=== PATIENT | female | born 1995 | race Caucasian/White ===

== ENCOUNTER 2017-09-11 12:42 | Emergency (ER) | payer MEDICAID ==
[2017-09-11 12:49] VITALS: BP 122/83; PULSE 72; RESP 18; TEMP 97.5; O2SAT 95
--- NOTE | 2017-09-11 13:38 | EDPHY ---
H & P Smoking Status: Former smoker Time Seen by Provider: 09/11/17 13:33 HPI/ROS: CHIEF COMPLAINT: Left thumb pain HISTORY OF PRESENT ILLNESS: 22-year-old [id number] female arrives via private vehicle complaining of acute left thumb pain after she was skiing and fell onto this area. Occurred shortly prior to arrival. No paresthesia. Intact skin. No proximal pain or injury. PHYSICAL EXAM (Prior to examination, patient consented to physical exam, hands were washed and my usual and customary physical exam procedures followed) 1) GENERAL: Well-developed, well-nourished, alert and oriented. Appears to be in no acute distress. 2) HEAD: Normocephalic 3) HEENT: Pupils equal, round, reactive to light bilaterally. 4) LUNGS: Breathing comfortably. 5) MUSCULOSKELETAL: Tender to palpation 1st metacarpal. Intact skin. Soft compartments. Normal coloration. 6) SKIN: Intact 7) VASCULAR: pulses and cap refill present are brisk 8) NEUROLOGIC: Radial, ulnar, median nerve function intact with no deficits appreciated on exam DIFFERENTIAL DIAGNOSIS: in no particular order including but not limited to fracture, sprain, compartment syndrome Procedure: Splint A Velcro thumb spica splint was applied by ER strain technician. After application of the splint I returned and re-examined the patient. The splint was adequately immobilizing the joint and distal to the splint the patient's circulation and sensation were intact. Patient shows no signs of compartment syndrome. Was given orthopedic precautions. (Bairon Covarrubias) Constitutional: Initial Vital Signs Temperature (C) 36.4 C 09/11/17 12:46 Heart Rate 72 09/11/17 12:46 Respiratory Rate 18 09/11/17 12:46 Blood Pressure 122/83 H 09/11/17 12:46 O2 Sat (%) 95 09/11/17 12:46 O2 Delivery Mode Room Air Allergies/Adverse Reactions: No Known Allergies Allergy (Verified 09/11/17 12:46) Home Medications: Medication Instructions Recorded Ibuprofen [Motrin (*)] 800 mg PO Q6 #15 tab 09/11/17 MDM/Departure - MDM Imaging Results: Imaging Impressions Finger X-Ray 09/11/17 12:49 Impression: 1. Nondisplaced fracture proximal shaft left first metacarpal with mild ventral angulation distal aspect. Images reviewed myself (Bairon Covarrubias) ED Course/Re-evaluation: Re-evaluation with serial exams. Discussed her imaging results. Stressed the importance of follow-up with Hand surgery. She is neurovascularly intact. She has been informed of the limitations of x-ray. Informed that ligamentous or non bony injury is not ruled out. Recommend continuous splinting until seen and cleared by Hand surgery. She is agreeable with this. Care of patient under supervision of primary Supervising physician Dr Carroll . (Bairon Covarrubias) PHYSICIAN DOCUMENTATION: The patient was evaluated and managed by the Physician Sales & Service Associate. My co- signature indicates that I have reviewed this chart and I agree with the findings and plan of care as documented. I am the secondary supervising physician. (Clifton Carroll) - Depart Disposition: Home, Routine, Self-Care Clinical Impression: Fracture of thumb, left, closed Qualifiers: Encounter type: initial encounter Phalanx: proximal Fracture alignment: displaced Qualified Code(s): S62.512A - Displaced fracture of proximal phalanx of left thumb, initial encounter for closed fracture Condition: Good Instructions: Finger Fracture (ED) Additional Instructions: Return to the ER immediately if you experience discoloration, have worsening pain, numbness, tingling, or any other symptoms that concern you. If you received x-rays in the emergency department today, be advised, that ligamentous , tendon, muscular, and other non-bony injury cannot be fully ruled out. Try to keep your affected extremity elevated above the level of your chest, and keep cold packs on the affected area, for the next 48 hours. It is very important to follow up with hand surgeon. Non bony injury is not ruled out. Prescriptions: Ibuprofen [Motrin (*)] 800 mg PO Q6 #15 tab Referrals: Clifton Hinton MD [Medical Doctor] - 2-3 days, call for appt. (Dr. Hinton is a hand surgeon)
== END 2017-09-11 14:05 | disposition home or self-care (01) ==
DX: S62.512A Displaced fracture of proximal phalanx of left thumb, initial encounter for closed fracture (principal); Z87.891 Personal history of nicotine dependence; V00.321A Fall from snow-skis, initial encounter; Y99.8 Other external cause status; Y93.23 Activity, snow (alpine) (downhill) skiing, snowboarding, sledding, tobogganing and snow tubing
CPT/HCPCS: L3807